=== PATIENT | female | born 1970 | race Hispanic/Latino ===

== ENCOUNTER 2019-05-17 09:14 | Outpatient (CLI) | payer OTHER ==
--- NOTE | 2019-05-17 12:06 | RAD ---
THORACIC SPINE 3 VIEWS: Date: 05/17/19 HISTORY: Back pain. FINDINGS: The vertebral bodies are normal in height. There are degenerative osteophytes seen along the course o f the spine without any compression fractures. Pedicles are intact. IMPRESSION: Mild to moderate arthritic changes of the mid to lower thoracic spine. POS: OFF
--- NOTE | 2019-05-17 12:15 | RAD ---
LUMBAR SPINE SERIES 2 VIEWS: HISTORY: Back pain. FINDINGS: The vertebral bodies maintain fairly normal height. There is some mild degenerative disk narrowing a t the L2-3 and L3-4 as well as L4-5 levels. There is slightly more pronounced disk narrowing at L1-2 . Minimal scoliotic change to the spine convex to the right with degenerative facet changes seen. P edicles are intact. IMPRESSION: Moderate arthritic changes of the spine. POS: OFF
== END 2019-05-17 09:15 | disposition home or self-care (01) ==
LOC: BICRAD 09:14
PROVIDERS: ATTEND Family Medicine
DX: M54.6 Pain in thoracic spine (principal); M47.814 Spondylosis without myelopathy or radiculopathy, thoracic region; M47.816 Spondylosis without myelopathy or radiculopathy, lumbar region
CPT/HCPCS: 72072; 72100